=== PATIENT | female | born 1955 | race African-American/Black ===

== ENCOUNTER 2023-01-10 12:13 | Emergency (ER) | payer MEDICAID, OTHER ==
[~2023-01-10] VITALS: Ht 167.6 cm; Wt 75.0 kg
[2023-01-10 12:23] VITALS: TEMP 98.7; O2SAT 100
[2023-01-10 12:45] VITALS: BP 124/73; PULSE 86; RESP 18
[2023-01-10] MEDS ORDERED: KETOROLAC 15MG/ML VIAL IV ONE (12:45)
[2023-01-10 16:14] LABS: BASOPHILS % 1.3 % (0.0-2.0); HEMATOCRIT. 34.5 % (36.0-48.0); LYMPHOCYTES % 34.4 % (20.0-50.0); MEAN CORPUSCULAR HEMOGLOBIN 21.9 pg (28.0-32.0); MEAN CORPUSCULAR HGB CONC 31.9 g/dL (31.0-37.0); MEAN CORPUSCULAR VOLUME 68.6 fL (81.0-99.0); MEAN PLATELET VOLUME 9.5 fl (7.4-10.4); MONOCYTES % 7.3 % (2.0-8.0); PLATELET 218 x1000/uL (130-400); RED BLOOD CELL COUNT 5.03 mill/uL (4.2-5.4); RED CELL DISTRIBUTION WIDTH 15.1 % (11.6-14.6); WHITE BLOOD COUNT 5.7 x1000/uL (4.5-11.0)
[2023-01-10 16:18] LABS: ADD RBC MORPHOLOGY YES; DIFFERENTIAL COMMENT 1
[2023-01-10] MEDS ORDERED: QUET50TA MT (16:19)
[2023-01-10] MEDS ORDERED: DIVA500T3 MT (16:19)
[2023-01-10] MEDS ORDERED: METF-414 MT (16:19)
[2023-01-10 16:23] LABS: CHLORIDE 105 mEq/L (98-107); INDEX HEMOLYSI 1 (1-3); INDEX ICTERIC 1 (1-4); INDEX LIPEMIC 1 (1-3); POTASSIUM 3.6 mEq/L (3.5-5.1); SODIUM 138 mEq/L (136-145)
[2023-01-10 16:25] LABS: CALCIUM 9.3 mg/dL (8.5-10.1)
[2023-01-10 16:31] LABS: ALANINE AMINOTRANSFERASE 26 IU/L (13-61); ALBUMIN 3.4 g/dL (3.4-5.0); ASPARTATE AMINOTRANSFERASE 24 IU/L (15-37); BILIRUBIN TOTAL 0.9 mg/dL (0.1-1.0); CARBON DIOXIDE 27 mEq/L (21-32); CREATININE 0.9 mg/dL (0.6-1.3); GLUCOSE 136 mg/dL (70-105); PROTEIN TOTAL 7.2 g/dL (6.0-8.3); UREA NITROGEN BLOOD 30 mg/dL (7-21)
[2023-01-10 16:51] LABS: ANISOCYTOSIS 1+; GIANT PLATELETS FEW; HYPOCHROMASIA 2+; MICROCYTOSIS 3+; OVALOCYTES 1+; PLATELET ESTIMATE NORMAL
== END 2023-01-10 17:10 | disposition home or self-care (01) ==
LOC: ER 13:26
DX: M17.0 Bilateral primary osteoarthritis of knee (principal); M25.462 Effusion, left knee; M25.461 Effusion, right knee; K45.8 Other specified abdominal hernia without obstruction or gangrene; F20.9 Schizophrenia, unspecified; I10 Essential (primary) hypertension; E11.9 Type 2 diabetes mellitus without complications; F17.210 Nicotine dependence, cigarettes, uncomplicated
CPT/HCPCS: 80053; 85025; 36415; 71045; 73562; 93970; 96374; 99285; J1885; Z7610